=== PATIENT | female | born 1950 | race Hispanic/Latino ===

== ENCOUNTER 2020-09-16 23:51 | Observation (INO) | payer OTHER ==
[~2020-09-16] VITALS: Ht 154.9 cm; Wt 90.7 kg
[2020-09-17] VITALS (9 sets, daily range): BP systolic 120–159; BP diastolic 52–83
[2020-09-17] MEDS ORDERED: ASPIRIN 325 MG TABLET PO ONE (00:45)
[2020-09-17 01:16] LABS: BASOPHILS % (AUTO) 0.7 % (0.0-5.0); EOSINOPHILS % (AUTO) 2.9 % (0.0-8.0); HEMATOCRIT 35.8 % (36-48); LYMPHOCYTES % (AUTO) 22.3 % (21.0-51.0); MEAN CORPUSCULAR HEMOGLOBIN 31.9 pg (27.0-33.0); MEAN CORPUSCULAR HGB CONC 34.1 g/dL (32.0-36.0); MEAN CORPUSCULAR VOLUME 93.7 fL (79-99); MONOCYTES % (AUTO) 12.7 % (3.0-13.0); NEUTROPHILS % (AUTO) 60.9 % (40.0-77.0); PLATELET COUNT (AUTO) 168 K/uL (130-400); RED BLOOD CELL COUNT(AUTO) 3.82 MIL/uL (4.00-5.50); RED CELL DISTRIBUTION WIDTH 12.7 % (11.0-15.5); WHITE BLOOD COUNT (AUTO) 4.1 K/uL (4.8-10.8)
[2020-09-17 01:20] LABS: CARBON DIOXIDE 28 mmol/L (21-32); CHLORIDE 103 mmol/L (101-111); CREATININE 1.5 mg/dL (0.5-1.5); GLOMERULAR FILTR. RATE CALC 36 mL/min (>60); GLUCOSE,RANDOM 80 mg/dL (70-105); POTASSIUM 4.2 mmol/L (3.5-5.1); SODIUM SERUM 140 mmol/L (136-145); UREA NITROGEN, BLOOD 23 mg/dL (7-18)
[2020-09-17 01:23] LABS: INR 0.97 (0.85-1.15); PROTHROMBIN TIME 10.6 SEC (9.6-11.6)
[2020-09-17 01:30] LABS: ALANINE AMINOTRANSFERASE 22 U/L (12-78); ALBUMIN 3.6 g/dL (3.5-5.0); ASPARTATE AMINOTRANSFERASE 20 U/L (10-37); BILIRUBIN,TOTAL 0.3 mg/dL (0.2-1.0); CREATINE KINASE, TOTAL 105 U/L (21-232); MYOGLOBIN 59 ng/mL (10-92); TOTAL PROTEIN, SERUM 7.1 g/dL (6.0-8.3); TROPONIN I < 0.04 ng/mL (0.00-0.06)
[2020-09-17] MEDS ORDERED: ASPIRIN 325 MG TABLET ONE (01:51)
[2020-09-17] MEDS ORDERED: FAMOTIDINE 20MG VIAL IV ONE (02:30)
[2020-09-17 03:00] LABS: MAGNESIUM 1.9 mg/dL (1.80-2.40)
[2020-09-17] MEDS ORDERED: ONDANSETRON 4MG INJ IV PRN (03:00)
[2020-09-17] MEDS ORDERED: ACETAMINOPHEN 325 MG TAB PO PRN ×2 (03:00)
[2020-09-17] MEDS ORDERED: DEXTROSE 50%-WATER 50 ML DISP.SYRIN IV PRN (03:00)
[2020-09-17] MEDS ORDERED: NITROGLYCERIN 0.4 MG SL TAB SL PRN (03:00)
[2020-09-17] MEDS ORDERED: GLUCAGON 1MG KIT 1 MG ML IM PRN (03:00)
[2020-09-17] MEDS ORDERED: NACL 0.9% 1000ML 1,000 ML IV SCH (03:00)
[2020-09-17] MEDS: PANTOPRAZOLE 40 MG/VIAL IVP SCH (03:32)
[2020-09-17 03:35] LABS: HEMOGLOBIN A1C 5.9 % (4.0-6.0)
[2020-09-17 05:02] LABS: CHOLESTEROL 130 mg/dL (<200); CREATINE KINASE, TOTAL 95 U/L (21-232); HDL CHOLESTEROL 67 mg/dL (35-85); LDL DIRECT 57 mg/dL (0-99); MYOGLOBIN 66 ng/mL (10-92); TRIGLYCERIDES 40 mg/dL (30-200); TROPONIN I < 0.04 ng/mL (0.00-0.06)
[2020-09-17] MEDS: INSULIN HUMULIN R 100 UNIT/ML 3ML SQ SCH ×4 (07:24→21:00)
[2020-09-17] MEDS: ASPIRIN 81 MG EC TAB PO SCH (09:14)
[2020-09-17] MEDS: HEPARIN 5,000 UNIT VIAL SQ SCH ×3 (09:14→21:25)
[2020-09-17] MEDS: FAMOTIDINE 20MG TAB PO SCH ×2 (09:14→21:25)
[2020-09-17 10:34] LABS: CREATINE KINASE, TOTAL 98 U/L (21-232); MYOGLOBIN 58 ng/mL (10-92); TROPONIN I < 0.04 ng/mL (0.00-0.06)
[2020-09-17] MEDS ORDERED: LISINOPRIL 5 MG TABLET PO ONE (18:00)
[2020-09-18] VITALS (7 sets, daily range): BP systolic 107–140; BP diastolic 50–65
[2020-09-18] MEDS ORDERED: HYDROXYZINE 25 MG TABLET PO SCH (00:30)
[2020-09-18] MEDS: PANTOPRAZOLE 40 MG/VIAL IVP SCH (02:30)
[2020-09-18 06:39] LABS: BASOPHILS % (AUTO) 0.6 % (0.0-5.0); EOSINOPHILS % (AUTO) 3.7 % (0.0-8.0); HEMATOCRIT 33.9 % (36-48); LYMPHOCYTES % (AUTO) 23.3 % (21.0-51.0); MEAN CORPUSCULAR HEMOGLOBIN 30.1 pg (27.0-33.0); MEAN CORPUSCULAR HGB CONC 32.4 g/dL (32.0-36.0); MEAN CORPUSCULAR VOLUME 92.9 fL (79-99); MONOCYTES % (AUTO) 12.4 % (3.0-13.0); NEUTROPHILS % (AUTO) 59.7 % (40.0-77.0); PLATELET COUNT (AUTO) 137 K/uL (130-400); RED BLOOD CELL COUNT(AUTO) 3.65 MIL/uL (4.00-5.50); RED CELL DISTRIBUTION WIDTH 12.4 % (11.0-15.5); WHITE BLOOD COUNT (AUTO) 3.5 K/uL (4.8-10.8)
[2020-09-18 06:52] LABS: ALBUMIN 3.1 g/dL (3.5-5.0); BILIRUBIN,TOTAL 0.3 mg/dL (0.2-1.0); CREATININE 1.4 mg/dL (0.5-1.5); MAGNESIUM 1.8 mg/dL (1.80-2.40); POTASSIUM 4.2 mmol/L (3.5-5.1); TOTAL PROTEIN, SERUM 6.2 g/dL (6.0-8.3)
[2020-09-18] MEDS: INSULIN HUMULIN R 100 UNIT/ML 3ML SQ SCH ×2 (07:30→11:30)
[2020-09-18] MEDS ORDERED: LISINOPRIL 5 MG TABLET PO SCH (09:00)
[2020-09-18] MEDS: ASPIRIN 81 MG EC TAB PO SCH (09:05)
[2020-09-18] MEDS: FAMOTIDINE 20MG TAB PO SCH (09:05)
[2020-09-18] MEDS: HEPARIN 5,000 UNIT VIAL SQ SCH ×2 (09:06→14:00)
[2020-09-18] MEDS ORDERED: LISI-809 PO (15:29)
[2020-09-18] MEDS ORDERED: FAMO20TA8 PO (15:29)
[2020-09-18] MEDS ORDERED: AEC81 PO (15:29)
== END 2020-09-18 16:11 | disposition home or self-care (01) ==
LOC: EDH 23:51 → EDHIP 09-17 02:55 → UNDODEPER 09-18 21:22
PROVIDERS: ADMIT Internal Medicine; ATTEND Internal Medicine
DX: R07.89 Other chest pain (principal); R00.2 Palpitations; R00.1 Bradycardia, unspecified; I12.9 Hypertensive chronic kidney disease with stage 1 through stage 4 chronic kidney disease, or unspecified chronic kidney disease; E11.22 Type 2 diabetes mellitus with diabetic chronic kidney disease; N18.30 Chronic kidney disease, stage 3 unspecified; E06.3 Autoimmune thyroiditis; E66.9 Obesity, unspecified; E78.5 Hyperlipidemia, unspecified; F41.9 Anxiety disorder, unspecified; K21.9 Gastro-esophageal reflux disease without esophagitis; Z85.3 Personal history of malignant neoplasm of breast; Z90.11 Acquired absence of right breast and nipple; Z90.710 Acquired absence of both cervix and uterus; Z90.49 Acquired absence of other specified parts of digestive tract; Z79.82 Long term (current) use of aspirin; Z79.899 Other long term (current) drug therapy; Z88.6 Allergy status to analgesic agent; Z91.041 Radiographic dye allergy status; Z88.5 Allergy status to narcotic agent; Z68.37 Body mass index [BMI] 37.0-37.9, adult
CPT/HCPCS: 36415 ×2; 71045; 80053 ×2; 80061; 82550 ×3; 82948 ×6; 83036; 83690; 83735 ×2; 83874 ×3; 83880; 84439; 84443; 84481; 84484 ×3; 85025 ×2; 85610; 93005 ×2; 93306; 93356; 96372 ×2; 96374; 96375; 99285; C9113; G0378 ×36; J1644 ×4; J3490

== ENCOUNTER → 2020-10-14 | Outpatient (CLI) | payer OTHER ==
[~2020-10-14] MED LIST: AEC81 PO; FAMO20TA8 PO; LISI-809 PO
== END | disposition home or self-care (01) ==
LOC: RAH 12:58
PROVIDERS: ATTEND Internal Medicine
DX: M50.323 Other cervical disc degeneration at C6-C7 level (principal); M48.02 Spinal stenosis, cervical region
CPT/HCPCS: 70360; 72040

== ENCOUNTER 2020-12-11 15:26 | Emergency (ER) | payer MEDICARE, OTHER ==
[~2020-12-11] VITALS: Ht 152.4 cm; Wt 90.3 kg
[2020-12-11 17:08] LABS: APPEARANCE,URINE Clear (CLEAR); BILIRUBIN,URINE Negative (NEGATIVE); COLOR,URINE Yellow (YELLOW); GLUCOSE, URINE (UA) Negative (NEGATIVE); KETONES,URINE Negative (NEGATIVE); LEUKOCYTE ESTERASE ,URINE Trace (NEGATIVE); NITRATE,URINE Negative (NEGATIVE); OCCULT BLOOD,URINE Trace (NEGATIVE); PH,URINE 5.5 (5.0-8.0); PROTEIN,URINE Negative (NEGATIVE); UROBILINOGEN,URINE 0.2 mg/dL (0.2-1.0)
[2020-12-11 17:09] VITALS: BP 149/84
[2020-12-11 17:15] LABS: AMPHET/METH SCREEN,URINE NEGATIVE (NEGATIVE); BARBITURATE SCREEN, URINE NEGATIVE (NEGATIVE); BENZODIAZEPINES SCREEN,URINE NEGATIVE (NEGATIVE); CANNABINOID SCREEN,URINE NEGATIVE (NEGATIVE); COCAINE SCREEN,URINE NEGATIVE (NEGATIVE); OPIATE SCREEN,URINE NEGATIVE (NEGATIVE); PHENCYCLIDINE SCREEN,URINE NEGATIVE (NEGATIVE)
[2020-12-11 17:20] LABS: RBC,URINE 0-1 /HPF (0-1)
[2020-12-11 17:21] LABS: BACTERIA,URINE None Seen /HPF (None Seen); MUCUS,URINE Few LPF (None Seen); SQUAMOUS EPITHELIAL CELL,UR Few /HPF (0-2); WBC,URINE 0-1 /HPF (0-1)
[2020-12-11 17:58] LABS: BASOPHILS % (AUTO) 0.8 % (0.0-5.0); EOSINOPHILS % (AUTO) 3.3 % (0.0-8.0); HEMATOCRIT 35.3 % (36-48); LYMPHOCYTES % (AUTO) 16.6 % (21.0-51.0); MEAN CORPUSCULAR HEMOGLOBIN 31.2 pg (27.0-33.0); MEAN CORPUSCULAR HGB CONC 33.7 g/dL (32.0-36.0); MEAN CORPUSCULAR VOLUME 92.7 fL (79-99); MONOCYTES % (AUTO) 7.7 % (3.0-13.0); NEUTROPHILS % (AUTO) 71.4 % (40.0-77.0); PLATELET COUNT (AUTO) 174 K/uL (130-400); RED BLOOD CELL COUNT(AUTO) 3.81 MIL/uL (4.00-5.50); RED CELL DISTRIBUTION WIDTH 12.4 % (11.0-15.5); WHITE BLOOD COUNT (AUTO) 4.8 K/uL (4.8-10.8)
[2020-12-11 18:04] LABS: INR 0.99 (0.85-1.15); PROTHROMBIN TIME 10.8 SEC (9.6-11.6)
[2020-12-11 18:06] LABS: PARTIAL THROMBOPLASTIN TIME 26.7 SEC (26.3-35.5)
[2020-12-11] MEDS ORDERED: ASPIRIN 81MG CHEW TAB PO ONE (18:30)
[2020-12-11 19:33] LABS: ALBUMIN 3.7 g/dL (3.5-5.0); BILIRUBIN,TOTAL 0.5 mg/dL (0.2-1.0); CREATININE 1.2 mg/dL (0.5-1.5); POTASSIUM 5.1 mmol/L (3.5-5.1); TOTAL PROTEIN, SERUM 7.2 g/dL (6.0-8.3)
[2020-12-11 20:23] VITALS: BP 152/78
[2020-12-11] MEDS ORDERED: IOHEXOL-350 75 ML VIAL IV ONE (20:37)
[2020-12-11] MEDS ORDERED: SOLU-MEDROL 125MG VIAL ONE (21:22)
[2020-12-11] MEDS ORDERED: SOLU-MEDROL 125MG VIAL IVP ONE (21:30)
[2020-12-11] MEDS ORDERED: METH4TAB3 PO (21:45)
== END 2020-12-11 22:11 | disposition home or self-care (01) ==
LOC: EDH 15:26
DX: M47.896 Other spondylosis, lumbar region (principal); R20.2 Paresthesia of skin; E78.00 Pure hypercholesterolemia, unspecified; I10 Essential (primary) hypertension; Z79.52 Long term (current) use of systemic steroids; Z79.82 Long term (current) use of aspirin; Z79.899 Other long term (current) drug therapy; Z85.3 Personal history of malignant neoplasm of breast; Z88.5 Allergy status to narcotic agent; Z88.8 Allergy status to other drugs, medicaments and biological substances
CPT/HCPCS: 36415; 70450; 71045; 72125; 80053; 80305; 81001; 84484; 85025; 85610; 85730; 93005; 99285; J2930; Q9967

== ENCOUNTER 2021-12-17 13:54 | Emergency (ER) | payer OTHER ==
[~2021-12-17] VITALS: Ht 152.4 cm; Wt 85.7 kg
[~2021-12-17 13:54] MED LIST changes: -LISI-809 PO; +LISI5TAB21 PO; +METH4TAB3 PO
[2021-12-17 14:21] LABS: BASOPHILS % (AUTO) 0.2 % (0.0-5.0); EOSINOPHILS % (AUTO) 0.2 % (0.0-8.0); HEMATOCRIT 35.4 % (36-48); LYMPHOCYTES % (AUTO) 5.3 % (21.0-51.0); MEAN CORPUSCULAR HEMOGLOBIN 31.2 pg (27.0-33.0); MEAN CORPUSCULAR HGB CONC 33.9 g/dL (32.0-36.0); MEAN CORPUSCULAR VOLUME 91.9 fL (79-99); MONOCYTES % (AUTO) 5.1 % (3.0-13.0); PLATELET COUNT (AUTO) 126 K/uL (130-400); RED BLOOD CELL COUNT(AUTO) 3.85 MIL/uL (4.00-5.50); RED CELL DISTRIBUTION WIDTH 12.7 % (11.0-15.5); WHITE BLOOD COUNT (AUTO) 4.1 K/uL (4.8-10.8)
[2021-12-17 14:29] LABS: CREATININE 1.4 mg/dL (0.5-1.5); POTASSIUM 4.1 mmol/L (3.5-5.1)
[2021-12-17] MEDS ORDERED: MAG/ALUM/SIMETH 30 ML UDCUP PO ONE (14:30)
[2021-12-17] MEDS ORDERED: ONDANSETRON 4MG INJ IVP ONE (14:30)
[2021-12-17] MEDS ORDERED: DICYCLOMINE HCL 10 MG/5 ML ML PO ONE (14:30)
[2021-12-17] MEDS ORDERED: FAMOTIDINE 20MG VIAL IV ONE (14:30)
[2021-12-17] MEDS ORDERED: LIDOCAINE HCL 2% VISCOUS 15 ML UDCUP PO ONE (14:30)
[2021-12-17 14:38] LABS: ALBUMIN 3.5 g/dL (3.5-5.0); TOTAL PROTEIN, SERUM 6.9 g/dL (6.0-8.3)
[2021-12-17] MEDS ORDERED: FAMO-136 PO (15:45)
[2021-12-17] MEDS ORDERED: DICY20TA2 PO (15:45)
[2021-12-17 15:48] LABS: APPEARANCE,URINE CLEAR (CLEAR); BILIRUBIN,URINE NEGATIVE (NEGATIVE); COLOR,URINE YELLOW (YELLOW); GLUCOSE, URINE (UA) NEGATIVE (NEGATIVE); KETONES,URINE NEGATIVE (NEGATIVE); LEUKOCYTE ESTERASE ,URINE 25 Leu/uL (NEGATIVE); NITRATE,URINE NEGATIVE (NEGATIVE); PH,URINE 5.5 (5.0-8.0); PROTEIN,URINE NEGATIVE (NEGATIVE); UROBILINOGEN,URINE 0.2 mg/dL (0.2-1.0)
[2021-12-17 15:53] LABS: MUCUS,URINE RARE LPF (None Seen); SQUAMOUS EPITHELIAL CELL,UR RARE /HPF (0-2)
[2021-12-17 16:06] VITALS: BP 146/87
[2021-12-18 04:22] LABS: HEPATITIS A IGM ANTIBODY Non-Reactive (Nonreactive); HEPATITIS B SURFACE ANTIGEN Non-Reactive (Nonreactive); HEPATITIS C ANTIBODY Non-Reactive (Nonreactive)
[2021-12-18 04:27] LABS: HEPATITIS B CORE IGM ANTIBODY Non-Reactive (Negative)
== END 2021-12-17 15:56 | disposition home or self-care (01) ==
LOC: EDH 13:54
DX: K29.70 Gastritis, unspecified, without bleeding (principal); R79.89 Other specified abnormal findings of blood chemistry; E66.01 Morbid (severe) obesity due to excess calories; Z68.36 Body mass index [BMI] 36.0-36.9, adult; E78.00 Pure hypercholesterolemia, unspecified; I10 Essential (primary) hypertension; Z98.890 Other specified postprocedural states; Z79.899 Other long term (current) drug therapy; Z79.82 Long term (current) use of aspirin; Z88.8 Allergy status to other drugs, medicaments and biological substances; Z88.6 Allergy status to analgesic agent
CPT/HCPCS: 99285; 74176; 96374; 96375; 84484; 80053; 83690; 85025; 80074; 81001; 36415; 93005 ×2; J3490; J2405

== ENCOUNTER 2023-07-19 19:56 | Emergency (ER) | payer OTHER ==
[~2023-07-19] VITALS: Ht 152.4 cm; Wt 78.5 kg
[~2023-07-19 19:56] MED LIST changes: +DICY20TA2 PO; +FAMO-136 PO
[2023-07-19] MEDS: ACETAMINOPHEN 325 MG TAB PO ONE (21:46)
[2023-07-19] MEDS: LIDOCAINE HCL 1% 20 ML VIAL INJ SCH (21:46)
[2023-07-19] MEDS ORDERED: AMOX-426 PO (22:17)
[2023-07-19] MEDS ORDERED: TRAM50TA4 PO (22:17)
[2023-07-19] MEDS ORDERED: ACET-2123 PO (22:23)
[2023-07-19 23:11] VITALS: BP 142/82; PULSE 72; RESP 16; O2SAT 99
== END 2023-07-19 23:12 | disposition home or self-care (01) ==
LOC: EDH 19:56
DX: N75.1 Abscess of Bartholin's gland (principal); I12.9 Hypertensive chronic kidney disease with stage 1 through stage 4 chronic kidney disease, or unspecified chronic kidney disease; N18.9 Chronic kidney disease, unspecified; E78.00 Pure hypercholesterolemia, unspecified; Z79.82 Long term (current) use of aspirin; Z79.899 Other long term (current) drug therapy; Z90.49 Acquired absence of other specified parts of digestive tract; Z90.710 Acquired absence of both cervix and uterus; Z98.890 Other specified postprocedural states; Z88.5 Allergy status to narcotic agent; Z88.8 Allergy status to other drugs, medicaments and biological substances
CPT/HCPCS: 56420

== ENCOUNTER 2023-07-22 03:25 | Emergency (ER) | payer OTHER ==
[~2023-07-22] VITALS: Ht 152.4 cm; Wt 77.6 kg
[~2023-07-22 03:25] MED LIST changes: +ACET-2123 PO; +AMOX-426 PO
[2023-07-22 05:17] VITALS: BP 129/57; PULSE 64; RESP 18; O2SAT 99
[2023-07-22] MEDS ORDERED: AMOX1TAB16 PO (05:23)
[2023-07-22] MEDS ORDERED: IBUP-1493 PO (05:23)
[2023-07-22] MEDS: ACETAMINOPHEN 325 MG TAB PO ONE (05:45)
== END 2023-07-22 05:57 | disposition home or self-care (01) ==
LOC: EDH 03:25
DX: N75.1 Abscess of Bartholin's gland (principal); I10 Essential (primary) hypertension; Z79.82 Long term (current) use of aspirin; Z79.899 Other long term (current) drug therapy; Z98.890 Other specified postprocedural states; Z85.3 Personal history of malignant neoplasm of breast; Z88.5 Allergy status to narcotic agent; Z88.8 Allergy status to other drugs, medicaments and biological substances